=== PATIENT | male | born 1975 | race Two or more races ===

== ENCOUNTER 2020-09-03 10:30 | Inpatient (IN) | payer OTHER ==
[~2020-09-03] VITALS: Ht 162.6 cm; Wt 63.5 kg
[2020-09-03] MEDS ORDERED: IMATINIB MESYL400 MG PO (12:35)
[2020-09-03] MEDS ORDERED: PREDNISONE20 M1 PO (12:35)
[2020-09-03] MEDS ORDERED: FOSAMAX70 MG PO (12:36)
[2020-09-03] MEDS ORDERED: [UNRECOGNIZED DRUG - OTHER] PO (12:37)
[2020-09-03] MEDS ORDERED: BUPROPION HCL200 M1 PO (12:37)
[2020-09-03] MEDS ORDERED: ATIVAN2 M1 PO (12:38)
[2020-09-03] MEDS ORDERED: LATANO (12:39)
[2020-09-03] MEDS ORDERED: CALCIUM (12:39)
[2020-09-10] MEDS ORDERED: PANTOPRAZOLE SO40 MG (08:33)
[2020-09-10] MEDS ORDERED: INDERAL LA120 MG (08:33)
[2020-09-10] MEDS ORDERED: LATANOPROST2.5 ML (08:33)
[2020-09-10] MEDS ORDERED: PROPAFENONE HC150 MG (08:33)
[2020-09-10] MEDS ORDERED: CALCIUM 600 WI1 EACH (08:34)
== END 2020-09-13 16:46 | disposition home or self-care (01) | DRG 331 ==
LOC: SURG 09-10 06:05 → O/R 09-10 06:05 → SURH 09-10 07:00 → SURG 09-10 18:27
PROVIDERS: ADMIT Colon & Rectal Surgery; ATTEND Colon & Rectal Surgery
PROC: 0WQF4ZZ Repair Abdominal Wall, Percutaneous Endoscopic Approach (ICD-10-PCS; 2020-09-10)
PROC: 0DTF4ZZ Resection of Right Large Intestine, Percutaneous Endoscopic Approach (ICD-10-PCS; 2020-09-10)
PROC: 0DJD8ZZ Inspection of Lower Intestinal Tract, Via Natural or Artificial Opening Endoscopic (ICD-10-PCS; 2020-09-10)
PROC: 0DBN8ZX Excision of Sigmoid Colon, Via Natural or Artificial Opening Endoscopic, Diagnostic (ICD-10-PCS; 2020-09-10)
PROC: 0DBP8ZX Excision of Rectum, Via Natural or Artificial Opening Endoscopic, Diagnostic (ICD-10-PCS; 2020-09-10)
PROC: 0D1B4Z4 Bypass Ileum to Cutaneous, Percutaneous Endoscopic Approach (ICD-10-PCS; principal; 2020-09-10 07:00)
DX: D12.2 Benign neoplasm of ascending colon (principal); D12.8 Benign neoplasm of rectum; K52.82 Eosinophilic colitis; R59.0 Localized enlarged lymph nodes; K43.9 Ventral hernia without obstruction or gangrene

== ENCOUNTER 2022-12-15 16:46 | Inpatient (IN) | payer OTHER ==
[~2022-12-15] VITALS: Ht 162.6 cm; Wt 52.2 kg
[~2022-12-15 16:46] MED LIST: ATIVAN2 M1 PO; BUPROPION HCL200 M1 PO; CALCIUM; CALCIUM 600 WI1 EACH; FOSAMAX70 MG PO; IMATINIB MESYL400 MG PO; INDERAL LA120 MG; LATANO; LATANOPROST2.5 ML; PANTOPRAZOLE SO40 MG; PREDNISONE20 M1 PO; PROPAFENONE HC150 MG; [UNRECOGNIZED DRUG - OTHER] PO
[2022-12-19] MEDS ORDERED: RETACRIT40000 UNIT (11:02)
[2022-12-19] MEDS ORDERED: DORZOLAMIDE-TIM10 ML (11:03)
[2022-12-19] MEDS ORDERED: ACIDOPHILUS1 EAC3 (11:03)
[2022-12-19] MEDS ORDERED: URSO250 MG (11:03)
[2022-12-19] MEDS ORDERED: PANTOPRAZOLE SO40 MG (11:03)
== END 2023-01-18 12:20 | disposition home or self-care (01) | DRG 388 ==
LOC: ER 16:46 → MEDI 12-16 01:09
PROVIDERS: ADMIT Specialist; ATTEND Specialist
PROC: BW211ZZ Computerized Tomography (CT Scan) of Abdomen and Pelvis using Low Osmolar Contrast (ICD-10-PCS; 2022-12-16)
PROC: BW211ZZ Computerized Tomography (CT Scan) of Abdomen and Pelvis using Low Osmolar Contrast (ICD-10-PCS; 2022-12-18)
PROC: BW40ZZZ Ultrasonography of Abdomen (ICD-10-PCS; 2022-12-20)
PROC: BW211ZZ Computerized Tomography (CT Scan) of Abdomen and Pelvis using Low Osmolar Contrast (ICD-10-PCS; 2022-12-22)
PROC: 30243N1 Transfusion of Nonautologous Red Blood Cells into Central Vein, Percutaneous Approach (ICD-10-PCS; principal; 2022-12-23)
PROC: 02HV33Z Insertion of Infusion Device into Superior Vena Cava, Percutaneous Approach (ICD-10-PCS; 2022-12-23)
PROC: BW25ZZZ Computerized Tomography (CT Scan) of Chest, Abdomen and Pelvis (ICD-10-PCS; 2022-12-30)
PROC: BF3 Imaging, Hepatobiliary System and Pancreas, Magnetic Resonance Imaging (MRI) (ICD-10-PCS; 2023-01-06)
PROC: BF37YZZ Magnetic Resonance Imaging (MRI) of Pancreas using Other Contrast (ICD-10-PCS; 2023-01-06)
PROC: 0DB68ZX Excision of Stomach, Via Natural or Artificial Opening Endoscopic, Diagnostic (ICD-10-PCS; 2023-01-09)
PROC: 0DBP8ZX Excision of Rectum, Via Natural or Artificial Opening Endoscopic, Diagnostic (ICD-10-PCS; 2023-01-09)
PROC: BD15YZZ Fluoroscopy of Upper GI using Other Contrast (ICD-10-PCS; 2023-01-10)
DX: K56.690 Other partial intestinal obstruction (principal); J18.0 Bronchopneumonia, unspecified organism; K31.1 Adult hypertrophic pyloric stenosis; C22.9 Malignant neoplasm of liver, not specified as primary or secondary; N17.9 Acute kidney failure, unspecified; M35.89 Other specified systemic involvement of connective tissue; D84.81 Immunodeficiency due to conditions classified elsewhere; K86.89 Other specified diseases of pancreas; K63.5 Polyp of colon; D63.0 Anemia in neoplastic disease; M19.09 Primary osteoarthritis, other specified site; M85.88 Other specified disorders of bone density and structure, other site; Z93.2 Ileostomy status; Z79.60 Long term (current) use of unspecified immunomodulators and immunosuppressants